=== PATIENT | female | born 1950 | race Caucasian/White ===

== ENCOUNTER 2017-09-16 17:11 | Emergency (ER) | payer MEDICARE, BC ==
[~2017-09-16] VITALS: Ht 154.9 cm; Wt 68.0 kg
[~2017-09-16 17:11] MED LIST: CLONAZEPAM 1 MG1 M1 PO; LEVOTHYROXINE0.05 MG PO; PREDNISONE 20 M20 MG PO; WELLBUTRIN 100100 MG PO; ZOLOFT50 MG; ZPAK PO
[2017-09-16] MEDS ORDERED: NEURONTIN 300300 M1 PO (17:19)
[2017-09-16] MEDS ORDERED: AMLODIPINE BESY10 MG PO (17:21)
[2017-09-16 17:49] LABS: HEMATOCRIT 40.1 % (37.0-47.0); MCH 27.5 pg (26.0-34.0); MCHC 32.3 g/dL (28.0-37.0); MCV 85.1 fL (80.0-100.0); MPV 12.4 fl. (7.2-11.1); NUCLEATED RBCS 0 /100WBC; RBC 4.72 mil/uL (4.20-5.00); RDW-CV 16.2 % (10.5-14.5); WBC 5.6 thou/uL (4.0-11.0)
[2017-09-16 17:58] LABS: ANION GAP 6 mmol/L (7-16); BUN 21 mg/dL (7-18); CALCIUM 8.4 mg/dL (8.5-10.1); CHLORIDE 105 mmol/L (98-107); CO2 32 mmol/L (21-32); CREATININE 0.7 mg/dL (0.6-1.3); GLUCOSE 95 mg/dL (70-99); POTASSIUM 4.3 mmol/L (3.5-5.1); SODIUM 143 mmol/L (136-145)
[2017-09-16 18:09] LABS: ALBUMIN 3.6 g/dL (3.4-5.0); ALKALINE PHOSPHATASE 58 U/L (46-116); LIPASE 127 U/L (73-393); NT-PRO BRAIN NAT PEPTIDE 32 pg/mL (<300); SGOT 15 U/L (15-37); SGPT 23 U/L (30-65); TOTAL BILIRUBIN 0.3 mg/dL (<0.1-1.0); TOTAL PROTEIN 7.7 g/dL (6.4-8.2); TROPONIN-I LEVEL <0.06 ng/mL (<0.06)
[2017-09-16 18:23] LABS: PLATELET COUNT* 49 thou/uL (150-400)
[2017-09-16 18:24] LABS: INFLUENZA A ANTIGEN None Detected (None Detect); INFLUENZA B ANTIGEN None Detected (None Detect)
[2017-09-16] MEDS ORDERED: AZITHROMYCIN 2250 MG PO (18:33)
[2017-09-16] MEDS ORDERED: MEDROL DOSPAK21 TA1 PO (18:33)
[2017-09-16 18:46] VITALS: BP 120/77
[2017-09-16 18:51] LABS: ABSOLUTE BASOPHILS 0.1 thou/uL (0.0-0.2); ABSOLUTE LYMPHOCYTES 2.6 thou/uL (0.8-5.3); ABSOLUTE MONOCYTES 1.6 thou/uL (0.0-1.2); ABSOLUTE NEUTROPHILS 1.3 thou/uL (1.6-8.1)
[2017-09-16 18:52] LABS: PLATELET ESTIMATE DECREASED
--- NOTE | 2017-09-17 10:43 | EKG ---
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 : 1950 Requested By: Randy Jhonson Order Number: [id number] MD: Wayne Wagner Measurements Intervals [place] Rate: 62 P: 10 DC: 183 QRS: -60 QRSD: 96 T: 24 QT: 530 QTc: 539 Interpretive Statements Sinus rhythm Left anterior fascicular block artifact noted Prolonged QT interval Compared to ECG 09/15/2015 19:03:33 Left anterior fascicular block now present Electronically Signed On 09-17-2017 10:43:18 [employer]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
== END 2017-09-16 18:48 | disposition home or self-care (01) ==
LOC: M.ERS 17:11
PROVIDERS: Emergency Medicine
DX: D69.6 Thrombocytopenia, unspecified (principal); J40 Bronchitis, not specified as acute or chronic; R07.89 Other chest pain; J44.9 Chronic obstructive pulmonary disease, unspecified; E03.9 Hypothyroidism, unspecified

== ENCOUNTER → 2017-11-11 | Outpatient (CLI) | payer MEDICARE, BC ==
[~2017-11-11] MED LIST changes: +AMLODIPINE BESY10 MG PO; +AZITHROMYCIN 2250 MG PO; +MEDROL DOSPAK21 TA1 PO; +NEURONTIN 300300 M1 PO
== END ==
LOC: M.ULTRA 13:27
DX: R10.2 Pelvic and perineal pain (principal)